=== PATIENT | female | born 1985 | race Two or more races ===

== ENCOUNTER 2018-11-25 06:50 | Inpatient (IN) | payer OTHER ==
[2018-11-25 07:51] VITALS: BMI 37.8
[2018-11-25] MEDS ORDERED: morphine SULFATE/PF 0.5 MG/ML (2cc Syringe - QUVA) EP ONE (08:33)
[2018-11-25] MEDS ORDERED: PROPOFOL 20 ML ONE (09:04)
[2018-11-25] MEDS ORDERED: SUCCINYLCHOLINE CHLORIDE 200 MG/10 ML SYRINGE ONE (09:04)
[2018-11-25 09:13] LABS: BLOOD UREA NITROGEN 5.4 mg/dL (7-18); CALCIUM 8.3 mg/dL (8.5-10.1); CREATININE 0.6 mg/dL (0.55-1.3); POTASSIUM 4.2 mmol/L (3.5-5.1)
[2018-11-25] MEDS ORDERED: OXYTOCIN 20 UNITS in 0.9% NS 20 UNIT/1,000 ML INFUS.BAG IV ONE (09:19)
--- NOTE | 2018-11-25 09:19 | HP ---
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: Alzheimer's, CVA, Dementia, Migraine, Multiple Sclerosis, Peripheral Neuropathy, Parkinson's, Seizure, Syncope, TIA, Vertigo, Other Cardiovascular: No: AFIB, Aneurysm, Aortic Insufficiency, Aortic Stenosis, CAD, CHF, Deep Vein Thrombosis, HTN, Hyperlipdemia, [place], Mitral Insufficiency, Mitral Stenosis, Murmur, Pulmonary Hypertension, Other Pulmonary: No: Asthma, Bronchitis, Cancer, COPD, O2 Dependent, Pneumonia, Previously Intubated, Pulmonary Embolus, Pulmonary Fibrosis, Sleep Apnea, Other Gastrointestinal: No: Ascites, Cancer, Constipation, Crohn's Disease, Diverticulitis, Diverticulosis, Esophageal Varices, Gastritis, GERD, GI Bleed, Hemorrhoids, Hiatal Hernia, Inflamatory Bowel Disease, Irritable Bowel Disease, Pancreatitis, Peptic Ulcer Disease, Ulcerative Colitis, Other Hepatobiliary: No: Cirrhosis, Cholelithiasis, Cholecystitis, Choledocholithiasis , Hepatitis A, Hepatitis B, Hepatitis C, Other Renal/: No: Renal Failure, Renal Inusuff, BPH, Cancer, Hematuria, Hemodialysis , Neurogenic Bladder, Renal Calculi, UTI, Other Reproductive: No: Ectopic , Endometriosis, Fibroids, PID, Polycystic Ovary Syndrome, Postmenopausal, Other ...: 7 ...Para: 1 ...Term: 0 ...: 1 ...Spon : 4 ...Induced : 1 ...Multiple Gestation: 2 ...EDC by Ean: 12/22/18 Heme/Onc: No: Anemia, B12 Deficiency, Bleeding Disorder, Cancer, Current Chemotherapy, Current Radiation Therapy, Hemochromatosis, Hypercoaguable State, Myeloproliferative Synd, Sickle Cell Disease, Sickle Cell Trait, Thrombocytopenia, Other Infectious Disease: No: AIDS, C-Diff, Herpes Zoster, HIV, MRSA, STD's, Tuberculosis, VREF, Other Psych: No: Addictions, Anxiety, Bipolar, Depression, Panic, Psychosis, Schizophrenia, Other Musculoskeletal: No: Bursitis, Chronic low back pain, Hemiparesis, Hemiplegia, Osteoarthritis, Paraplegia, Other Rheumatology: No: Fibromyalgia, Gout, Lupus, Rheumatoid Arthritis, Sarcoidosis, Vasculitis, Other ENT: No: Allergic Rhinitis, Sinusitis, Other Endocrine: No: Hall's Disease, [place]'s Disease, Diabetes Insipidus, Diabetes Mellitus, Hyperparathyroidism, Hyperthyroidism, Hypothyroidism, Osteopenia, SIADH, Other Dermatology: No: Basal Cell, Cellulitis, Eczema, Melanoma, Psoriasis, Squamous Cell, Other - Past Surgical History Past Surgical History: No: None, AAA Repair, AICD, Amputation, Appendectomy, Arthrosocopy, AV Fistula/Graft, Bariatric Surgery, Breast Biopsy, Bypass, CABG, Carotid Endarterectomy, Cataract Removal, Cholecystectomy, Colectomy, Colonoscopy, Colostomy, Craniotomy, , Cystectomy, Hernia Repair, Hysterectomy, Ileal Conduit, Ileosotomy, Joint Replacement, Kidney Transplant, Laminectomy, Liver Transplant, Mastectomy, Nephrectomy, Oopherectomy, Orchiectomy, Permanent Pacemaker, Prostatectomy, Splenectomy, Stent, Thoracotomy , TURP, Tonsillectomy, Tubal Ligation, Upper Endoscopy, Valve Replacement, Vasectomy, Vein Stripping/Ligation Hx Myomectomy: No Hx Transabdominal Cerclage: No - Advance Directives Advance Directives: Yes: Living Will - Smoking History Smoking history: Never smoked Have you smoked in the past 12 months: No - Alcohol/Substance Use Hx Alcohol Use: No History of Substance Use: reports: None - Social History Usual Living Arrangement: Yes: With Spouse ADL: Independent History of Recent Travel: No Home Medications - Allergies Allergies/Adverse Reactions: Allergies Allergy/AdvReac Type Severity Reaction Status Date / Time Sulfa (Sulfonamide Allergy Severe hemolysis Verified 11/18/18 11:43 Antibiotics) - Home Medications Home Medications: Ambulatory Orders Insulin NPH [Novolin N Vial -] 16 units SQ HS 10/21/18 Vit 93/Iron Fum/Folic [ Formula Tablet] 1 tablet PO DAILY 10/21 Insulin NPH [Novolin N Vial] 12 units SQ ACBK 11/05/18 Family Medical History Family History: Denies Review of Systems - Review of Systems Constitutional: reports: No Symptoms Eyes: reports: No Symptoms HENT: reports: No Symptoms Neck: reports: No Symptoms Cardiovascular: reports: No Symptoms Respiratory: reports: No Symptoms Gastrointestinal: reports: No Symptoms Genitourinary: reports: No Symptoms Breasts: reports: No Symptoms Reported Musculoskeletal: reports: No Symptoms Integumentary: reports: No Symptoms Neurological: reports: No Symptoms Endocrine: reports: No Symptoms Hematology/Lymphatic: reports: No Symptoms Physical Exam - Maternity Vital Signs: Vital Signs Temperature 98.6 F 11/25/18 07:40 Pulse Rate 91 H 11/25/18 07:40 Respiratory Rate 18 11/25/18 07:40 Blood Pressure 126/77 11/25/18 07:40 O2 Sat by Pulse Oximetry (%) Constitutional: Yes: Well Nourished, No Distress, Calm Eyes: Yes: WNL, Conjunctiva Clear, EOM Intact HENT: Yes: WNL, Atraumatic, Normocephalic Neck: Yes: WNL, Supple, Trachea Midline Cardiovascular: Yes: WNL, Regular Rate and Rhythm Lungs: Clear to auscultation Breast(s): Yes: WNL - Abdominal Exam/OB Fundal Height: 42 Number of Fetuses: Single Presentation: Vertex, Breech - Labs Lab Results: CBC, BMP 11/25/18 08:20 Hemorrhage Risk Assessment - Risk Factors Medium Risk Factors: Yes: Prior , uterine surgery,or multiple laparotomies Risk Score: 1 Risk Level: Medium Risk Assessment/Plan: for c s , oligo, decrease fm Assessment/Plan fro re repeat cs
[2018-11-25] MEDS ORDERED: ePHEDrine SULFATE 50 MG/1 ML AMPULE ONE (09:33)
[2018-11-25] MEDS ORDERED: CITRIC ACID/SODIUM CITRATE 30 ML UNIT-DOSE CUP PO ONE (10:25)
[2018-11-25] MEDS ORDERED: METHYLERGONOVINE MALEATE 0.2 MG/1 ML AMP IM PRN (10:26)
[2018-11-25] MEDS ORDERED: oxyCODONE HCL 5 MG TABLET PO PRN (10:26)
[2018-11-25] MEDS: OXYTOCIN 20 UNITS in 0.9% NS 20 UNIT/1,000 ML INFUS.BAG IV SCH ×2 (10:30→17:53)
--- NOTE | 2018-11-25 10:36 | OP ---
Operative Note - Note: Operative Date: 11/25/18 Pre-Operative Diagnosis: repeat cs in labor, twin, oligo, decrease fm Operation: repeat lt cs Findings: no adhesions, vx, transverse turn into vertex for second twin Post-Operative Diagnosis: Same as Pre-op Surgeon: Jonnathan Lindsay Utilization Review Nurse: Javier Bain Anesthesiologist/DRAFTING DETAILER: Jayne Sehn MD Anesthesia: Spinal Estimated Blood Loss (mls): 800 Operative Report Dictated: Yes
[2018-11-25] MEDS ORDERED: ONDANSETRON 4 MG/2 ML VIAL ONE (10:39)
[2018-11-25] MEDS: ONDANSETRON 4 MG/2 ML VIAL IVPUSH PRN ×2 (10:45→17:53)
--- NOTE | 2018-11-25 11:52 | PN ---
Progress Note (short form) - Note Progress Note: I assisted Dr. Lindsay at repeat section for twin gestation for the entirety of the case
[2018-11-25] MEDS: IBUPROFEN 800 MG/8 ML IJ IVPB PRN (15:29)
[2018-11-26] MEDS: IBUPROFEN 800 MG/8 ML IJ IVPB PRN (03:59)
[2018-11-26 07:22] LABS: BASO % 0.5 % (0-2.0); EOS % 0.2 % (0-4.5); HEMATOCRIT 35.5 % (32.4-45.2); HEMOGLOBIN 11.5 GM/dL (10.7-15.3); LYMPH % 15.1 % (8-40); MCH 26.8 pg (25.7-33.7); MCHC 32.4 g/dl (32.0-36.0); MEAN CELL VOLUME 82.7 fl (80-96); MEAN PLT VOLUME 8.9 fl (7.5-11.1); MONO % 6.4 % (3.8-10.2); NEUT % 77.8 % (42.8-82.8); PLATELET COUNT 194 K/MM3 (134-434); RBC 4.29 M/mm3 (3.60-5.2); RDW 16.7 % (11.6-15.6)
[2018-11-26] MEDS: ENOXAPARIN NA (PORCINE) 40 MG/0.4 ML DISP.SYRIN SQ SCH (09:38)
[2018-11-26] MEDS ORDERED: DIPHTH,PERTUSS(ACELL),TET 0.5 ML DISP.SYRIN IM ONE (10:00)
[2018-11-26] MEDS ORDERED: BISACODYL 10 MG SUPP.RECT RC PRN (10:26)
--- NOTE | 2018-11-26 11:06 | PN ---
Progress Note (short form) - Note Progress Note: Anesthesia/pain Pt seen and examined S:Alert and awake O: Vital Signs Temperature 98.4 F 11/26/18 07:20 Pulse Rate 78 11/26/18 07:20 Respiratory Rate 18 11/26/18 09:00 Blood Pressure 125/77 11/26/18 07:20 O2 Sat by Pulse Oximetry (%) 140 H 11/25/18 11:30 CBC, BMP 11/26/18 06:55 11/25/18 08:20 A/P: s/p c section doing well post op Continue Current care Cezar Cruz M.D.
[2018-11-26] MEDS: IBUPROFEN 600 MG TABLET (FP) PO PRN ×2 (11:41→21:02)
[2018-11-26] MEDS: ACETAMINOPHEN 325 MG TABLET (FP) PO PRN ×2 (11:41→21:02)
[2018-11-26] MEDS: SIMETHICONE 80 MG TAB.CHEW (FP) PO PRN ×2 (11:42→21:02)
--- NOTE | 2018-11-26 15:41 | PN ---
Post Progress Note Post Day: 1 Type of Delivery: Repeat C/S Vital Signs: Vital Signs Temperature 98.4 F 11/26/18 07:20 Pulse Rate 78 11/26/18 07:20 Respiratory Rate 18 11/26/18 09:00 Blood Pressure 125/77 11/26/18 07:20 O2 Sat by Pulse Oximetry (%) 140 H 11/25/18 11:30 Breast Exam: Yes: Soft Uterus: Yes: Fundus Firm, Fundus below umbilicus Incision: Yes: Dressing dry and intact, Sutures intact Abdomen/GI: Yes: Abdomen soft, Passing flatus, Tolerating PO Lochia: Yes: Rubra Lochia, amount: Small Extremities: Yes: Calves non-tender Perineum: Yes: Intact Activity: Ambulating - Labs Labs: CBC WBC 9.0 K/mm3 (4.0-10.0) 11/26/18 06:55 RBC 4.29 M/mm3 (3.60-5.2) 11/26/18 06:55 Hgb 11.5 GM/dL (10.7-15.3) 11/26/18 06:55 Hct 35.5 % (32.4-45.2) 11/26/18 06:55 MCV 82.7 fl (80-96) 11/26/18 06:55 MCH 26.8 pg (25.7-33.7) 11/26/18 06:55 MCHC 32.4 g/dl (32.0-36.0) 11/26/18 06:55 RDW 16.7 % (11.6-15.6) H 11/26/18 06:55 Plt Count 194 K/MM3 (134-434) 11/26/18 06:55 MPV 8.9 fl (7.5-11.1) 11/26/18 06:55 Absolute Neuts (auto) 7.0 K/mm3 (1.5-8.0) 11/26/18 06:55 Neutrophils % 77.8 % (42.8-82.8) 11/26/18 06:55 Lymphocytes % 15.1 % (8-40) D 11/26/18 06:55 Monocytes % 6.4 % (3.8-10.2) 11/26/18 06:55 Eosinophils % 0.2 % (0-4.5) 11/26/18 06:55 Basophils % 0.5 % (0-2.0) 11/26/18 06:55 Nucleated RBC % 0 % (0-0) 11/26/18 06:55 Assessment/Plan doing well, tolerating diet well,
[2018-11-26] MEDS: oxyCODONE HCL 5 MG TABLET PO PRN (21:03)
[2018-11-27] MEDS: OXYTOCIN 20 UNITS in 0.9% NS 20 UNIT/1,000 ML INFUS.BAG IV SCH (03:44)
[2018-11-27] MEDS: SIMETHICONE 80 MG TAB.CHEW (FP) PO PRN ×2 (10:25→21:22)
[2018-11-27] MEDS: IBUPROFEN 600 MG TABLET (FP) PO PRN (10:26)
[2018-11-27] MEDS: oxyCODONE HCL 5 MG TABLET PO PRN (10:26)
[2018-11-27] MEDS: ENOXAPARIN NA (PORCINE) 40 MG/0.4 ML DISP.SYRIN SQ SCH (10:27)
--- NOTE | 2018-11-27 17:08 | PN ---
Post Progress Note Post Day: 2 Type of Delivery: Repeat C/S Vital Signs: Vital Signs Temperature 98.4 F 11/27/18 10:00 Pulse Rate 80 11/27/18 10:00 Respiratory Rate 20 11/27/18 10:00 Blood Pressure 124/71 11/27/18 10:00 O2 Sat by Pulse Oximetry (%) 140 H 11/25/18 11:30 Breast Exam: Yes: Soft Uterus: Yes: Fundus Firm, Fundus below umbilicus Incision: Yes: Dressing dry and intact, Sutures intact Abdomen/GI: Yes: Abdomen soft, Passing flatus, Tolerating PO Lochia: Yes: Serosa Lochia, amount: Small Extremities: Yes: Calves non-tender Perineum: Yes: Intact Activity: Ambulating - Labs Labs: CBC WBC 9.0 K/mm3 (4.0-10.0) 11/26/18 06:55 RBC 4.29 M/mm3 (3.60-5.2) 11/26/18 06:55 Hgb 11.5 GM/dL (10.7-15.3) 11/26/18 06:55 Hct 35.5 % (32.4-45.2) 11/26/18 06:55 MCV 82.7 fl (80-96) 11/26/18 06:55 MCH 26.8 pg (25.7-33.7) 11/26/18 06:55 MCHC 32.4 g/dl (32.0-36.0) 11/26/18 06:55 RDW 16.7 % (11.6-15.6) H 11/26/18 06:55 Plt Count 194 K/MM3 (134-434) 11/26/18 06:55 MPV 8.9 fl (7.5-11.1) 11/26/18 06:55 Absolute Neuts (auto) 7.0 K/mm3 (1.5-8.0) 11/26/18 06:55 Neutrophils % 77.8 % (42.8-82.8) 11/26/18 06:55 Lymphocytes % 15.1 % (8-40) D 11/26/18 06:55 Monocytes % 6.4 % (3.8-10.2) 11/26/18 06:55 Eosinophils % 0.2 % (0-4.5) 11/26/18 06:55 Basophils % 0.5 % (0-2.0) 11/26/18 06:55 Nucleated RBC % 0 % (0-0) 11/26/18 06:55 Assessment/Plan oob , doing well,
--- NOTE | 2018-11-27 17:13 | DS ---
Physical Exam-DELIVERY MANAGER Vital Signs: Vital Signs Temperature 98.4 F 11/27/18 10:00 Pulse Rate 80 11/27/18 10:00 Respiratory Rate 20 11/27/18 10:00 Blood Pressure 124/71 11/27/18 10:00 O2 Sat by Pulse Oximetry (%) 140 H 11/25/18 11:30 Constitutional: Yes: Well Nourished, No Distress, Calm Eyes: Yes: WNL, Conjunctiva Clear, EOM Intact HENT: Yes: WNL, Atraumatic, Normocephalic Neck: Yes: WNL, Supple, Trachea Midline Cardiovascular: Yes: WNL, Regular Rate and Rhythm Respiratory: Yes: WNL, Regular, CTA Bilaterally Gastrointestinal: Yes: WNL, Normal Bowel Sounds, Soft ...Rectal Exam: Yes: WNL Renal/: Yes: WNL Pelvis: Yes: WNL External Genitalia: Yes: Normal Internal Exam Deferred: No Vaginal Exam: Yes: Normal Cervix: Yes: Normal Uterus: Yes: Normal Adnexa: Normal: Bilateral ....Post : Yes: Uterus firm, Uterus non-tender Breast(s): Yes: WNL Musculoskeletal: Yes: WNL Extremities: Yes: WNL Edema: Yes Edema: LUE: 1+, RUE: 1+, LLE: 1+, RLE: 1+ Integumentary: Yes: WNL Wound/Incision: Yes: Clean/Dry, Well Approximated Neurological: Yes: WNL, Alert, Oriented ...Motor Strength: WNL Psychiatric: Yes: WNL, Alert, Oriented Labs: CBC, BMP 11/26/18 06:55 11/25/18 08:20 Delivery - Delivery Type of Anesthesia: Spinal EBL (cc): 800 Delivery, Single - Feeding Plan Initial Plan: Exclusive throughout hospitalization Delivery, Multiple Births - Stages of Labor Delivery Baby "A" Date: 11/25/18 Time: 09:45 Placenta/Membranes "A" Date: 11/25/18 Time: 09:47 Delivery Baby "B" Date: 11/25/18 Time: 09:46 Placenta/Membranes "B" Date: 11/25/18 Time: 09:47 - Condition of Multiple Births 1 (A) Accident Report Clerk/Chief Controller Present: Yes Infant Gender: Male Weight: 2.693 kg Total Hours ROM (HRS/MINS): 3 minutes [place] 2 (B) Accident Report Clerk/Chief Controller Present: Yes Infant Gender: Female Weight: 2.665 kg Total Hours ROM (HRS/MINS): 2 minutes - 1 (A) 1 Minute Score: 9 1 (A) 5 Minutes Score: 9 2 (B) 1 Minute Score: 9 [place] 2 (B) 5 Minutes Score: 9 Discharge Summary Problems reviewed: Yes Reason For Visit: SCHEDULED C/SECTION repeat cs Procedures: Principal: repeat c s Hospital Course: uneventful Health Concerns: none Plan of Treatment: oob as much as possible Condition: Good - Instructions Diet, Activity, Other Instructions: regular Disposition: HOME - Home Medications Comprehensive Discharge Medication List: Ambulatory Orders Insulin NPH [Novolin N Vial -] 16 units SQ HS 10/21/18 Vit 93/Iron Fum/Folic [ Formula Tablet] 1 tablet PO DAILY 10/21 Insulin NPH [Novolin N Vial] 12 units SQ ACBK 11/05/18 Prescription Drug Monitoring Program (I-STOP) results: I-STOP reviewed and no issues identified
[2018-11-28] MEDS: oxyCODONE HCL 5 MG TABLET PO PRN (03:52)
[2018-11-28] MEDS: SIMETHICONE 80 MG TAB.CHEW (FP) PO PRN ×2 (03:52→22:42)
[2018-11-28] MEDS: ACETAMINOPHEN 325 MG TABLET (FP) PO PRN ×2 (03:52→22:42)
[2018-11-28 07:21] LABS: BASO % 1.1 % (0-2.0); EOS % 1.4 % (0-4.5); HEMATOCRIT 32.1 % (32.4-45.2); HEMOGLOBIN 10.6 GM/dL (10.7-15.3); MEAN CELL VOLUME 81.9 fl (80-96); MEAN PLT VOLUME 8.8 fl (7.5-11.1); MONO % 5.8 % (3.8-10.2); NEUT % 71.7 % (42.8-82.8); PLATELET COUNT 249 K/MM3 (134-434); RBC 3.91 M/mm3 (3.60-5.2); RDW 16.4 % (11.6-15.6); WHITE BLOOD COUNT 9.6 K/mm3 (4.0-10.0)
[2018-11-28] MEDS: ENOXAPARIN NA (PORCINE) 40 MG/0.4 ML DISP.SYRIN SQ SCH (10:57)
[2018-11-28] MEDS: IBUPROFEN 600 MG TABLET (FP) PO PRN (17:27)
[2018-11-29 07:44] VITALS: BP 123/73; PULSE 80; TEMP 98.6
[2018-11-29] MEDS: ENOXAPARIN NA (PORCINE) 40 MG/0.4 ML DISP.SYRIN SQ SCH (09:04)
[2018-11-29] MEDS: IBUPROFEN 600 MG TABLET (FP) PO PRN (10:43)
[2018-11-29] MEDS: ACETAMINOPHEN 325 MG TABLET (FP) PO PRN (10:44)
[2018-11-29] MEDS: SIMETHICONE 80 MG TAB.CHEW (FP) PO PRN (10:44)
--- NOTE | 2018-11-29 13:55 | PATH ---
Surgical Pathology Report Patient Name: SOURAV CASANOVA [facility]. Rec. #: [id number] /Age/Gender: 1985 (Age: 33) / F Account: [id number] Location: [facility] OBS/PROCUREMENT ACCOUNTANT Taken: 11/25/2018 Received: 11/26/2018 Reported: 11/29/2018 Physicians: Jonnathan Lindsay MD Specimen(s) Received PLACENTA Clinical History , 1, SAB x4, ectopic , induced x1, IVF , di/di twins, marginal cord insertion twin B, oligohydramnios Final Diagnosis PLACENTA, SECTION: 998 G DIAMNIOTIC DICHORIONIC FUSED DISC TWIN PLACENTA. PLACENTA A, THIRD TRIMESTER PLACENTA WITH TRIVASCULAR UMBILICAL CORD AND UNREMARKABLE PLACENTAL MEMBRANES. PLACENTA B, THIRD TRIMESTER PLACENTA WITH TRIVASCULAR UMBILICAL CORD AND UNREMARKABLE PLACENTAL MEMBRANES. Electronically Signed Berkley Kidd M.D. Gross Description Received in formalin labeled "placenta," is a 998 g twin placenta comprised of 2 fused discs, by dividing membranes. The dividing membranes are kennedy and opaque. There is one clamp marking the umbilical cord of placenta "A" and two clamps marking the umbilical cord of placenta "B", per the surgeon. Placenta "A" measures 18.0 x 13.0 x 2.5 cm. The attached membranes are kennedy, translucent with focal opacities and insert marginally. The umbilical cord measures 32 cm in length and averages 1.3 cm in diameter. The umbilical cord inserts eccentrically, 4.5 cm to the nearest margin. No true knots or strictures are identified. The cut surface of the umbilical cord reveals 3 vessels. The surface is frey blue with minimal fibrin deposition and appropriate caliber vessels. The maternal surface is red-brown with focal defects. Sectioning reveals red-brown, spongy parenchyma. No lesions are identified. Placenta "B" measures 17.5 x 15.0 x 2.5 cm. The attached membranes are kennedy, translucent with focal opacities and insert marginally. The umbilical cord measures 30 cm in length and averages 1.2 cm in diameter. The cord inserts at the margin. No true knots or strictures are identified. Cut surface of the umbilical cord reveals 3 vessels. The surface is frey blue with minimal fibrin deposition and appropriate caliber vessels. The maternal surface is red-brown with focal defects. Sectioning reveals red-brown, spongy parenchyma. No lesions are identified. [employer] sections are submitted in 7 cassettes as follows: 1-placenta "A" membrane roll and umbilical cord; 5-3-fnpv-thickness sections of placenta "A"; 4-dividing membranes; 5-placenta "B" membrane roll and umbilical cord; 7-7-drga-thickness sections of placenta "B". 11/26/2018 [facility]
--- NOTE | 2018-11-29 15:55 | OP ---
DATE OF OPERATION: 11/25/2018 PREOPERATIVE DIAGNOSIS: Twin gestational age, in vitro fertilization in labor with previous low transverse section, oligohydramnios of twin B, decreased movement of twin B, and gestational diabetic on insulin. POSTOPERATIVE DIAGNOSIS: Twin gestational age, in vitro fertilization in labor with previous low transverse section, oligohydramnios of twin B, decreased movement of twin B, and gestational diabetic on insulin. PROCEDURE: Repeat low transverse section. SURGEON: Jonnathan Lindsay MD RN RESEARCH: Javier Bain MD ANESTHESIA: Spinal, Jayne Shen MD INDICATIONS: This is a 33-year-old female patient previous low transverse section twin gestational age following IVF. Patient had multiple spontaneous abortions the past few years. Patient has been following up with a perinatologist, Dr. Bee, throughout the for high-risk for twin gestational age. Patient also known to be gestational diabetic on insulin, so patient finally 36 weeks and 1 day present. Patient has been followed up with [facility] weekly. Patient is found to have contractions; however, today and yesterday, the patient's contractions have become much more painful, and patient feels this contractions, and patient also complains of decreased movement of twin B consistently. Patient even had a biophysical profile, and twin B is slightly decreased movement and twin B. Patient bruce every 5 minutes. With above indications, patient is taken to the OR today for repeat low transverse section at 36 weeks and 1 day. DESCRIPTION OF PROCEDURE: Patient was placed on the operating room table in supine position. After the spinal anesthesia was obtained, patient's abdomen and pelvis were prepped and draped in the usual sterile manner. Pfannenstiel incision was made. Incision was made through the skin and subcutaneous tissue until the fascia was nicked in the midline. The fascia extended bilaterally. Intraperitoneal cavity was entered. No bladder flap was created. Low transverse segment was entered. Twin A was delivered from vertex presentation. Artificial rupture of membrane was done. Umbilical cord was clamped. Cord blood gas obtained. Baby was hand delivered to bleach liquor maker after umbilical cord doubly clamped and cut. Then we proceeded with twin B. Artificial rupture of membrane was done. Twin B was transverse lie and was turned to vertex, and twin B was delivered from vertex presentation. Twin B was given to the bleach liquor maker after umbilical cord doubly clamped and cut and cord blood gait obtain. Placenta was removed. Uterus was closed in a single layer. First layer interlocking Vicryl sutures. Good hemostasis. Both of the gutters were cleaned. Both ovaries, fallopian tubes, uterus within normal limits. No complication. Patient tolerated the procedure well. Both tubes were within normal limits; however, both ovaries were polycystic ovary looking, slightly enlarged. Other than that, no complication. Blood loss 800 mL. No scar tissue was seen. The peritoneum was closed. Fascia was closed. Skin was closed. Transferred to recovery room in stable condition. Blood loss about 800 mL. Draining clear urine. MD LION MAYBERRY/[id number]
== END 2018-11-29 14:00 | disposition home or self-care (01) | DRG 787 ==
LOC: JLDR 06:50 → J3W 12:00
PROVIDERS: ADMIT Obstetrics & Gynecology; ATTEND Obstetrics & Gynecology
PROC: 10D00Z1 Extraction of Products of Conception, Low, Open Approach (ICD-10-PCS; principal; 2018-11-25)
DX: O30.043 Twin pregnancy, dichorionic/diamniotic, third trimester (principal); O41.03X1 Oligohydramnios, third trimester, fetus 1; O32.2XX1 Maternal care for transverse and oblique lie, fetus 1; O24.424 Gestational diabetes mellitus in childbirth, insulin controlled; O34.211 Maternal care for low transverse scar from previous cesarean delivery; Z3A.36 36 weeks gestation of pregnancy; Z37.0 Single live birth; Z37.2 Twins, both liveborn
CPT/HCPCS: 36415; 80048; 82962; 85025; 87389; 88307-TC; 90715